=== PATIENT | male | born 1990 | race Two or more races ===

== ENCOUNTER 2016-09-22 10:42 | Emergency (ER) | payer OTHER ==
[~2016-09-22] VITALS: Ht 182.9 cm; Wt 104.3 kg
--- NOTE | 2016-09-22 11:08 | NUR ---
ASSUME PT CARE. RESTING IN BED C/O N/V. GENERALIZED ITCHING. STATES "INSECT BITES." WAS SEEN AT URGENT CARE TODAY. PLACED N MONITOR SHOWING STABLE VITALS. DR HERNANDES AT BEDSIDE.
--- NOTE | 2016-09-22 11:10 | NUR ---
IV LINE STARTED BLOOD DRAWN AND SENT TO LAB.
[2016-09-22] MEDS ORDERED: methylPREDNISolone SOD SUCC 125 MG/2ML VIAL ONE (11:11)
[2016-09-22] MEDS ORDERED: IV NS 0.9% 1,000 ML ONE (11:11)
[2016-09-22] MEDS ORDERED: diphenhydrAMINE HCL 50 MG/ML VIAL ONE (11:11)
[2016-09-22 11:19] LABS: BASOPHILS # (AUTO) 0.1 /CMM (0.0-0.2); BASOPHILS % (AUTO) 0.8 % (0.0-2.0); EOSINOPHILS # (AUTO) 0.2 /CMM (0.0-0.7); EOSINOPHILS % (AUTO) 1.6 % (0.0-6.0); HEMATOCRIT 50 % (39-51); HEMOGLOBIN 16.9 g/dL (13.5-17.5); LYMPHOCYTES # (AUTO) 2.9 /CMM (0.8-4.8); LYMPHOCYTES % (AUTO) 29.1 % (20.0-44.0); MEAN CORPUSCULAR HEMOGLOBIN 30 PG (26.0-33.0); MEAN CORPUSCULAR HGB CONC 34 g/dl (31.0-36.0); MEAN CORPUSCULAR VOLUME 89 fL (80-96); MONOCYTES # (AUTO) 0.7 /CMM (0.1-1.30); MONOCYTES % (AUTO) 7.6 % (2.0-12.0); NEUTROPHILS # (AUTO) 5.9 /CMM (1.8-8.9); NEUTROPHILS % (AUTO) 60.9 % (43.0-81.0); PLATELET COUNT (AUTO) 306 /CMM (150-450); RDW COEFFICIENT OF VARIATION 11.6 (11.5-15.0); RED BLOOD CELL COUNT(AUTO) 5.56 MIL/uL (4.5-6.0); WHITE BLOOD COUNT (AUTO) 9.8 K/uL (4.3-11.0)
--- NOTE | 2016-09-22 11:28 | NUR ---
PT STATES SUICIDAL W/ PLAN OF HANGING HIMSELF. DR HERNANDES MADE AWARE. PLACED ON SUICIDE PRECAUTUION.
[2016-09-22] MEDS ORDERED: diphenhydrAMINE HCL 50 MG/ML VIAL IV ONE (11:30)
[2016-09-22] MEDS ORDERED: methylPREDNISolone SOD SUCC 125 MG/2ML VIAL IV ONE (11:30)
[2016-09-22] MEDS ORDERED: IV NS 0.9% 1,000 ML BAG IV ONE (11:30)
[2016-09-22 11:31] LABS: CREATININE 1.1 mg/dL (0.6-1.3)
[2016-09-22 11:32] LABS: POTASSIUM 2.7 mmol/L (3.5-5.1)
[2016-09-22] MEDS ORDERED: POTASSIUM CHLORIDE 20 MEQ TAB.PRT.SR PO ONE ×2 (11:59→12:00)
--- NOTE | 2016-09-22 13:00 | NUR ---
CALLED [facility] M[facility]OZA FOR PSYCH EVAL ETA 1 HOUR.
--- NOTE | 2016-09-22 14:18 | NUR ---
MARLYN RN AT BEDSIDE FOR PSYCH EVAL.
--- NOTE | 2016-09-22 16:51 | NUR ---
ACCEPTED BY [facility] BY DR. BLACK; [address]; REPORT [phone]
--- NOTE | 2016-09-22 16:57 | NUR ---
[facility] RESPONSE - [phone]- NO ANSWER; NOT WORKING
--- NOTE | 2016-09-22 16:57 | NUR ---
CALLED [facility] - NO AVAILABLE AMBULANCE.
--- NOTE | 2016-09-22 17:01 | NUR ---
CALLED [facility] FOR TRANSPORTATION GOING TO [facility] ETA 1 HOUR
[2016-09-22 18:15] VITALS: BP 136/74
--- NOTE | 2016-09-22 18:29 | NUR ---
REPORT GIVEN TO INDIRA AT [facility]. PT AWAITING TRANSFER.
[2016-09-22 18:39] LABS: PHENCYCLIDINE SCREEN,URINE NEGATIVE (NEGATIVE)
[2016-09-22 18:41] LABS: CANNABINOID, URINE POSITIVE (NEGATIVE)
--- NOTE | 2016-09-22 19:23 | NUR ---
TRANSFERED TO [facility]. STABLE CONDITION.
== END 2016-09-22 19:25 ==
LOC: ER 10:50
DX: R45.851 Suicidal ideations (principal); T78.40XA Allergy, unspecified, initial encounter; F20.9 Schizophrenia, unspecified; F10.20 Alcohol dependence, uncomplicated; F17.210 Nicotine dependence, cigarettes, uncomplicated; X58.XXXA Exposure to other specified factors, initial encounter; Y92.89 Other specified places as the place of occurrence of the external cause; Y93.89 Activity, other specified; Y99.8 Other external cause status
CPT/HCPCS: 36415; 80048-TC; 80305; 85025-TC; A4606; J1200; J2930; J7030; Z7610

== ENCOUNTER 2016-11-28 00:10 | Emergency (ER) | payer OTHER ==
[~2016-11-28] VITALS: Ht 182.9 cm; Wt 89.4 kg
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
--- NOTE | 2016-11-28 00:40 | NUR ---
LAB AT BEDSIDE FOR BLOOD DRAW.
[2016-11-28 00:53] LABS: BASOPHILS # (AUTO) 0.1 /CMM (0.0-0.2); BASOPHILS % (AUTO) 0.6 % (0.0-2.0); EOSINOPHILS # (AUTO) 0.1 /CMM (0.0-0.7); HEMATOCRIT 42 % (39-51); HEMOGLOBIN 14.4 g/dL (13.5-17.5); LYMPHOCYTES # (AUTO) 3.9 /CMM (0.8-4.8); LYMPHOCYTES % (AUTO) 30.9 % (20.0-44.0); MEAN CORPUSCULAR HEMOGLOBIN 30 PG (26.0-33.0); MEAN CORPUSCULAR HGB CONC 34 g/dl (31.0-36.0); MEAN CORPUSCULAR VOLUME 89 fL (80-96); MONOCYTES # (AUTO) 1.6 /CMM (0.1-1.30); MONOCYTES % (AUTO) 12.6 % (2.0-12.0); NEUTROPHILS # (AUTO) 6.9 /CMM (1.8-8.9); NEUTROPHILS % (AUTO) 54.9 % (43.0-81.0); PLATELET COUNT (AUTO) 294 /CMM (150-450); RDW COEFFICIENT OF VARIATION 13.1 (11.5-15.0); RED BLOOD CELL COUNT(AUTO) 4.74 MIL/uL (4.5-6.0); WHITE BLOOD COUNT (AUTO) 12.6 K/uL (4.3-11.0)
[2016-11-28 00:59] LABS: CALCIUM, SERUM 9.2 mg/dL (8.5-10.1); CARBON DIOXIDE 30 mmol/L (21-32); CHLORIDE 100 mmol/L (98-107); GLUCOSE 90 mg/dL (74-106); POTASSIUM 3.3 mmol/L (3.5-5.1); SODIUM SERUM 137 mmol/L (136-145); UREA NITROGEN, BLOOD 19 mg/dL (7-18)
[2016-11-28 01:05] LABS: ALANINE AMINOTRANSFERASE 29 U/L (12-78); ALBUMIN 4.1 g/dL (3.4-5.0); ALCOHOL, BLOOD < 3 mg/dL (0-0); ALKALINE PHOSPHATASE 119 U/L (46-116); ASPARTATE AMINOTRANSFERASE 58 U/L (15-37); BILIRUBIN,DIRECT 0.2 mg/dL (0.0-0.2); BILIRUBIN,TOTAL 1.1 mg/dL (0.2-1.0); TOTAL PROTEIN, SERUM 7.8 g/dL (6.4-8.2)
[2016-11-28 01:07] LABS: ACETAMINOPHEN 0 ug/ml (10-30); SALICYLATE 1.6 mg/dL (2.8-20.0)
--- NOTE | 2016-11-28 01:26 | NUR ---
Patient is resting comfortably in bed with eyes closed. Easily aroused. VSS
[2016-11-28] MEDS ORDERED: oxyCODONE/APAP (5/325 MG) 1 UDTAB TABLET ONE (02:17)
[2016-11-28] MEDS ORDERED: OLANZAPINE 5 MG TABLET ONE (02:17)
--- NOTE | 2016-11-28 03:35 | NUR ---
Patient is resting comfortably in bed with eyes closed. Easily aroused.
[2016-11-28] MEDS: oxyCODONE/APAP (5/325 MG) 1 UDTAB TABLET PO ONE (03:55)
[2016-11-28] MEDS: OLANZAPINE 5 MG TABLET PO ONE (03:55)
--- NOTE | 2016-11-28 06:50 | NUR ---
Patient is resting comfortably in bed with eyes closed. Easily aroused. VSS.
--- NOTE | 2016-11-28 07:26 | NUR ---
REPORT GIVEN TO KELLY ANTONY FOR C.O.C
--- NOTE | 2016-11-28 07:52 | NUR ---
PT SLEEPING SOUNDLY RESP EVEN UNLABORED
--- NOTE | 2016-11-28 11:19 | NUR ---
PT EASLIY AROUSED RESP EVEN UNLABORED CONT TO MONITOR VSS
--- NOTE | 2016-11-28 11:51 | NUR ---
PT WANTS TO HAND HIMSELF CALLED [facility] FOR PSYCH EVAIL
--- NOTE | 2016-11-28 11:54 | NUR ---
CALLED CLINICIAN MAGGIE FOR EVAL OF PT. HER ETA IS APPROX 1 HOUR
--- NOTE | 2016-11-28 12:04 | NUR ---
PT STATED WANTED TO HANG HIMSELF FELL BACK ARELY SLEEP
--- NOTE | 2016-11-28 14:35 | NUR ---
PT SEEN BY [facility] AND [facility]JAN FOR [facility] AT [facility]
--- NOTE | 2016-11-28 17:00 | NUR ---
PT AWAKE ATE AND WENT TO THE BATHROOM VOIDED . BACK TO BED .
[2016-11-28 18:20] VITALS: BP 108/59
--- NOTE | 2016-11-28 19:43 | NUR ---
PT RESTING IN ER BED, NAD NOTED, SKIN WARM AND DRY. WILL CONTINUE TO MONITOR
--- NOTE | 2016-11-29 00:21 | NUR ---
PT RESTING IN ER BED, NAD NOTED, SKIN WARM AND DRY. WILL CONTINUE TO MONITOR
[2016-11-29] MEDS ORDERED: POTASSIUM CHLORIDE 20 MEQ TAB.PRT.SR PO ONE (01:03)
--- NOTE | 2016-11-29 01:15 | NUR ---
report given to betty garcia for continuation of care.
[2016-11-29] MEDS: POTASSIUM CHLORIDE 20 MEQ TAB.PRT.SR PO ONE (01:20)
--- NOTE | 2016-11-29 02:19 | NUR ---
REPORT GIVEN TO EMT FOR TRANSPORT
== END 2016-11-29 02:55 ==
LOC: ER 00:11
DX: F15.10 Other stimulant abuse, uncomplicated (principal); F45.8 Other somatoform disorders; F17.200 Nicotine dependence, unspecified, uncomplicated; F20.9 Schizophrenia, unspecified; Z88.0 Allergy status to penicillin
CPT/HCPCS: 36415; 80048-TC; 80076-TC; 80305; 85025-TC; A4606; G0480; Z7610

== ENCOUNTER 2017-09-26 10:46 | Emergency (ER) | payer OTHER ==
[~2017-09-26] VITALS: Ht 180.3 cm; Wt 86.2 kg
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
--- NOTE | 2017-09-26 11:47 | NUR ---
Patient ambulating with steady gait. Vitals stable. Patient discharged to home in stable condition. Written and verbal after care instructions given. Patient verbalizes understanding of instruction. Refused to sign discharge instructions.
[2017-09-26 11:51] VITALS: BP 136/74
== END 2017-09-26 11:51 | disposition home or self-care (01) ==
LOC: ER 10:48
DX: F15.10 Other stimulant abuse, uncomplicated (principal); F20.9 Schizophrenia, unspecified; F17.200 Nicotine dependence, unspecified, uncomplicated; Z88.0 Allergy status to penicillin
CPT/HCPCS: A4606; Z7610

== ENCOUNTER 2018-02-24 13:39 | Emergency (ER) | payer OTHER ==
[~2018-02-24] VITALS: Ht 175.3 cm; Wt 79.4 kg
[2018-02-24] MEDS ORDERED: IV NS 0.9% 1,000 ML BAG IV ONE (14:30)
[2018-02-24 14:48] LABS: BASOPHILS % (AUTO) 0.3 % (0.0-2.0); EOSINOPHILS % (AUTO) 2.2 % (0.0-6.0); HEMATOCRIT 42 % (39-51); HEMOGLOBIN 14.2 g/dL (13.5-17.5); LYMPHOCYTES # (AUTO) 3.8 /CMM (0.8-4.8); LYMPHOCYTES % (AUTO) 30.4 % (20.0-44.0); MEAN CORPUSCULAR HGB CONC 34 g/dl (31.0-36.0); MEAN CORPUSCULAR VOLUME 88 fL (80-96); MONOCYTES # (AUTO) 1.3 /CMM (0.1-1.30); MONOCYTES % (AUTO) 10.5 % (2.0-12.0); NEUTROPHILS # (AUTO) 7.1 /CMM (1.8-8.9); NEUTROPHILS % (AUTO) 56.6 % (43.0-81.0); PLATELET COUNT (AUTO) 318 /CMM (150-450); RDW COEFFICIENT OF VARIATION 13.4 (11.5-15.0); WHITE BLOOD COUNT (AUTO) 12.5 K/uL (4.3-11.0)
[2018-02-24 14:59] LABS: CALCIUM, SERUM 9.3 mg/dL (8.5-10.1); CARBON DIOXIDE 21 mmol/L (21-32); CHLORIDE 102 mmol/L (98-107); GLUCOSE 96 mg/dL (74-106); POTASSIUM 3.5 mmol/L (3.5-5.1); SODIUM SERUM 141 mmol/L (136-145); UREA NITROGEN, BLOOD 16 mg/dL (7-18)
[2018-02-24 15:03] LABS: ALANINE AMINOTRANSFERASE 27 U/L (12-78); ALBUMIN 4.3 g/dL (3.4-5.0); ALCOHOL, BLOOD 231 mg/dL (0-0); ALKALINE PHOSPHATASE 112 U/L (46-116); ASPARTATE AMINOTRANSFERASE 65 U/L (15-37); BILIRUBIN,DIRECT 0.1 mg/dL (0.0-0.2); BILIRUBIN,TOTAL 0.4 mg/dL (0.2-1.0); TOTAL PROTEIN, SERUM 8.3 g/dL (6.4-8.2)
[2018-02-24 15:10] LABS: TROPONIN I < 0.017 ng/mL (0.00-0.056)
[2018-02-24] MEDS ORDERED: HALOPERIDOL LACTATE INJ 5 MG/ML VIAL ONE ×2 (16:50→18:11)
[2018-02-24] MEDS ORDERED: HALOPERIDOL LACTATE INJ 5 MG/ML VIAL IM ONE (17:00)
[2018-02-24] MEDS ORDERED: LORAZEPAM INJ 2 MG/ML VIAL ONE (17:13)
[2018-02-24] MEDS ORDERED: LORAZEPAM INJ 2 MG/ML VIAL IM ONE (17:30)
[2018-02-24] MEDS ORDERED: HALOPERIDOL LACTATE INJ 5 MG/ML VIAL IV ONE (17:30)
[2018-02-24] MEDS ORDERED: diphenhydrAMINE HCL 50 MG/ML VIAL ONE (18:04)
--- NOTE | 2018-02-24 18:24 | NUR ---
PATIENT NOT SCREAMING ANYMORE,BENADRYL ORDERED VERBALLY CANCELLED AND WASTED
--- NOTE | 2018-02-24 19:17 | NUR ---
RN TO RN REPORT RECEIVED FOR MARC.
--- NOTE | 2018-02-24 21:06 | NUR ---
PT CONTINUES TO REST QUIETLY, VSS. RN TO CONTINUE MONITORING PROVIDING SAFETY/COMFORT MEASURES.
[2018-02-24 22:59] VITALS: BP 121/58
== END 2018-02-24 23:00 | disposition home or self-care (01) ==
LOC: ER 13:44
DX: T51.91XA Toxic effect of unspecified alcohol, accidental (unintentional), initial encounter (principal); F20.9 Schizophrenia, unspecified; F32.9 Major depressive disorder, single episode, unspecified; F17.210 Nicotine dependence, cigarettes, uncomplicated; Z88.0 Allergy status to penicillin; Y92.89 Other specified places as the place of occurrence of the external cause
CPT/HCPCS: 36415; 70450; 71045; 80048; 80076; 84484; 85025; 93005; 96361; 96372 ×2; 96374; 99285; 99406; A4606; G0480; J1630 ×2; J2060; J7030 ×2; Z7610; J1200